=== PATIENT | male | born 1955 | race African-American/Black ===

== ENCOUNTER 2016-09-05 12:05 | Day surgery (SDC) | payer BC ==
--- NOTE | ~2016-09-05 | EGD ---
EGD REPORT [facility] [address] [place] [address] NAME: TWAN WINTERS : 57 STATUS : REG [facility]#: [id number] AGE: 61 ADM/REG DATE : 09/05/16 MR#: [id number] REPORT SERV DATE: 09/05/16 DICTATED BY: KOLE LINDA DATE: 09/05/16 REPORT STATUS : Draft [facility]: [facility] DATE: 09/05/16 End[facility] Center Patient Name: Twan Winters Date of : 1955 Attending MD: KOLE LINDA MD Procedure Date No Time: 09/05/2016 Procedure: Upper GI endoscopy Indications: Epigastric abdominal pain, Dysphagia, Hematemesis Referring MD: MARIZOL GONZALEZ Medicines: See the Anesthesia note for documentation of the administered medications Complications: Oxygen sats dropped, ambu assisted respirations Procedure: After obtaining informed consent, the endoscope was passed under direct vision. Throughout the procedure, the patient's blood pressure, pulse, and oxygen saturations were monitored continuously. The GIF [id number] was introduced through the mouth, and advanced to the second part of duodenum. The upper GI endoscopy was accomplished without difficulty. The patient tolerated the procedure well. Findings: The examined duodenum was normal. The entire examined stomach was normal. The cardia and gastric fundus were normal on retroflexion. A 7 cm hiatus hernia was present. A mild Schatzki ring (acquired) was found at the gastroesophageal junction. dilated with scope Moderately severe gina esophagitis Impression: - Normal examined duodenum. - Normal stomach. - Hiatus hernia. - Mild Schatzki ring. - Moderately severe gina esophagitis Recommendation: - Patient has a contact number available for emergencies. The signs and symptoms of potential delayed complications were discussed with the patient. Return to normal activities tomorrow. Written discharge instructions were provided to the patient. - Soft diet. - Continue present medications. - Call office to schedule EGD with dilation for 3-4 weeks Rx for Diflucan 100mg two day one and then one every day EGD REPORT [address] [place]. [address] NAME: TWAN WINTERS : [birth year] STATUS : REG [facility]#: [id number] AGE: 61 ADM/REG DATE : 09/05/16 MR#: [id number] REPORT SERV DATE: 09/05/16 DICTATED BY: KOLE LINDA DATE: 09/05/16 REPORT STATUS : Draft TRANSCRIBED BY: [employer] DATE: 09/05/16 for 9 days Procedure Code(s): --- Professional --- 12649, Esophagogastroduodenoscopy, flexible, transoral; diagnostic, including collection of specimen(s) by brushing or washing, when performed (separate procedure) Diagnosis Code(s): --- Professional --- K44.9, Diaphragmatic hernia without obstruction or gangrene K22.2, Esophageal obstruction R10.13, Epigastric pain R13.10, Dysphagia, unspecified K92.0, Hematemesis CPT copyright 2013 [employer]. All rights reserved. The codes documented in this report are preliminary and upon category planner review may be revised to meet current compliance requirements. Kole Linda MD KOLE LINDA MD 09/05/2016 1:56 PM This report has been signed electronically. Number of Addenda: 0 Note Initiated On: 09/05/2016 1:40 PM Scope Withdrawal Time 0 hours 0 minutes 0 seconds [address] [place] [address]
[~2016-09-05 12:05] MED LIST: B12; DIOVAN HCT320 MG/25 PO; FLONASE NAS; FLUTICASONE NASAL NAS; HYDROCOD APAP PO; IMU PO; KLOR-CON M2020 MEQ PO; KLOR-CON/EF25 MEQ PO; LORTAB 5 PO; LORTAB10 PO; METHOC750B PO; MOBIC15 MG PO; MULTIVITAMI1 PO; NEUR300 PO; NEUR600 PO; PRILO PO; VOLT75 PO; VOLTXR100 PO; [UNRECOGNIZED DRUG - OTHER] PO
[2017-02-19] MEDS ORDERED: KDUR20 PO (16:49)
[2017-02-19] MEDS ORDERED: DIOVAN HCT320 MG/25 PO (16:49)
[2017-02-19] MEDS ORDERED: EZFE 200200 MG PO (16:50)
[2017-02-19] MEDS ORDERED: NEUR300 PO (16:50)
[2017-02-19] MEDS ORDERED: INDO50 PO (16:51)
[2017-02-19] MEDS ORDERED: PRILOSEC40 MG PO (16:52)
[2017-02-19] MEDS ORDERED: GREEN TEA PO (16:53)
[2017-02-19] MEDS ORDERED: NORCO1 TAB PO (16:53)
[2017-02-19] MEDS ORDERED: MULTIPLE VIT PO (16:54)
== END 2016-09-05 23:59 | disposition home or self-care (01) ==
LOC: DMU 12:05
PROVIDERS: Internal Medicine Gastroenterology
PROC: 0DJ08ZZ Inspection of Upper Intestinal Tract, Via Natural or Artificial Opening Endoscopic (ICD-10-PCS; principal; 2016-09-05 14:00)
DX: K22.2 Esophageal obstruction (principal); B37.81 Candidal esophagitis; K44.9 Diaphragmatic hernia without obstruction or gangrene; R10.13 Epigastric pain; R13.10 Dysphagia, unspecified; K92.0 Hematemesis; I10 Essential (primary) hypertension; G47.33 Obstructive sleep apnea (adult) (pediatric); M33.20 Polymyositis, organ involvement unspecified; K21.9 Gastro-esophageal reflux disease without esophagitis; M06.9 Rheumatoid arthritis, unspecified; Z79.899 Other long term (current) drug therapy; Z79.51 Long term (current) use of inhaled steroids; Z79.891 Long term (current) use of opiate analgesic; Z88.2 Allergy status to sulfonamides
CPT/HCPCS: 82962; J2930

== ENCOUNTER 2016-10-18 06:20 | Day surgery (SDC) | payer BC ==
[2016-10-14 10:18] LABS: HEMATOCRIT 36.7 % (40.0-51.0); HEMOGLOBIN 13.1 g/dL (13.6-17.8)
[2016-10-14 10:30] LABS: A/G RATIO 1.2 (0.7-1.9); ALBUMIN 3.9 G/DL (3.5-5.0); ALKALINE PHOSPHATASE 68 U/L (45-117); BUN (BLOOD UREA NITROGEN) 10 MG/DL (6-23); CALCIUM, SERUM 8.6 MG/DL (8.5-10.4); CHLORIDE, SERUM 107 MMOL/L (96-112); CO2 (CARBON DIOXIDE) 30 MMOL/L (24-34); CREATININE 0.59 MG/DL (0.70-1.30); GFR AFRICAN AMERICAN 128 ML/MIN (>=60); GFR NON AFRICAN AMERICAN 110 ML/MIN (>=60); GLOBULIN 3.2 G/DL (2.5-4.1); GLUCOSE, SERUM 90 MG/DL (60-99); POTASSIUM, SERUM 3.5 MMOL/L (3.5-5.3); SGOT(AST) 27 U/L (5-40); SGPT(ALT) 39 U/L (5-65); SODIUM, SERUM 142 MMOL/L (135-148); TOTAL BILIRUBIN 1.1 MG/DL (0-1.2); TOTAL PROTEIN 7.1 G/DL (6.0-8.5)
--- NOTE | ~2016-10-18 | OP ---
Record Of Operation [facility] [address] [place]. [address] NAME: TWAN JAMIL : 57 STATUS : [facility]#: [id number] AGE: 61 ADM/REG DATE : 10/18/16 MR#: [id number] REPORT SERV DATE: 10/18/16 DICTATED BY: SAWYER MONTES DE OCA DATE: 10/18/16 REPORT STATUS : Draft TRANSCRIBED BY: MOD[employer] DATE: 10/18/16 DATE OF PROCEDURE: 10/18/2016 PREOPERATIVE DIAGNOSIS: Bilateral inguinal hernia. POSTOPERATIVE DIAGNOSIS: Bilateral inguinal hernia. PROCEDURE: Laparoscopic reduction and mesh patch repair of bilateral inguinal hernia. DESCRIPTION OF OPERATIVE PROCEDURE: The patient was brought to the operating suite, placed in supine position, underwent satisfactory general endotracheal anesthesia without incident. The skin of the abdomen was scrubbed, prepped, and draped in usual sterile fashion. 0.5% Marcaine with epinephrine was utilized as supplemental local anesthesia. Initially, an infraumbilical incision was performed dissecting through the skin and subcutaneous tissue to the umbilical fascia. Inferolateral retraction to the left exposed the medial aspect of the left anterior rectus sheath. This was incised longitudinally and the medial aspect of the left rectus muscle was identified and retracted laterally exposing the left posterior rectus sheath. A preperitoneal dissection balloon was inserted posterior to the left rectus sheath to the level of pubic tubercle. It was insufflated under direct camera visualization creating a preperitoneal dissection plane bilaterally. This balloon was removed and replaced with a structural balloon and CO2 was insufflated into the preperitoneal space for pressures of 15 mmHg throughout the case. Two additional 5 mm trocars were placed in the infraumbilical midline. Completion of preperitoneal dissection was performed bilaterally. On the left, there was a direct defect consisted of incarcerated fat medial to the inferior epigastric vessels over the pubic tubercle. There was no indirect defect. On the right, the patient had no direct defect, but he had a large protrusion of preperitoneal fat through the internal ring that took many moments of tedious dissection to remove from the ring and then free up between Weck polymer clips to where it could be retracted away from the internal ring. Two separately placed pieces of Bard 3DMax polypropylene mesh, size large, oriented left and right were utilized for the repair. The pieces of mesh were placed in local anesthesia, rolled up and then placed in the preperitoneal space. They were unrolled over the inguinal canals bilaterally covering Hesselbach's triangle and the inferior epigastric vessels. The cord structures were allowed to egress below the lower edge of the mesh. Multiple firings of the SorbaFix helical tacker were utilized to plicate the mesh in position and then hemostasis was assured. CO2 was allowed to egress from the preperitoneal space. Trocar was removed as well as a structural balloon. The posterior rectus sheath and peritoneum were opened allowing CO2 to egress from the Record Of Operation [place] [id number] [facility] [place]. [address] NAME: TWAN JAMIL : 57 STATUS : [facility]#: [id number] AGE: 61 ADM/REG DATE : 10/18/16 MR#: [id number] REPORT SERV DATE: 10/18/16 DICTATED BY: SAWYER MONTES DE OCA DATE: 10/18/16 REPORT STATUS : Draft TRANSCRIBED BY: ASMITA DATE: 10/18/16 peritoneal cavity, and then the posterior rectus sheath as well as the anterior rectus sheath were both closed with [id number] sutures of 0 Vicryl. Subcutaneous tissue closed at all sites with interrupted 4-0 Vicryl, running subcuticular stitch 4-0 Vicryl for the skin, and Dermabond skin adhesive placed. The patient tolerated the procedure well and was returned to PACU in stable condition. At the termination of the procedure, sponge, needle, lap, and instrument counts were correct x3. ESTIMATED BLOOD LOSS: 15-20 mL. BEN/ASMITA Sawyer Montes De Oca M.D. / [id number] CC: Des Costello M.D.
[2017-02-19] MEDS ORDERED: KDUR20 PO (16:49)
[2017-02-19] MEDS ORDERED: DIOVAN HCT320 MG/25 PO (16:49)
[2017-02-19] MEDS ORDERED: EZFE 200200 MG PO (16:50)
[2017-02-19] MEDS ORDERED: NEUR300 PO (16:50)
[2017-02-19] MEDS ORDERED: INDO50 PO (16:51)
[2017-02-19] MEDS ORDERED: PRILOSEC40 MG PO (16:52)
[2017-02-19] MEDS ORDERED: GREEN TEA PO (16:53)
[2017-02-19] MEDS ORDERED: NORCO1 TAB PO (16:53)
[2017-02-19] MEDS ORDERED: MULTIPLE VIT PO (16:54)
== END 2016-10-18 13:02 | disposition home or self-care (01) ==
LOC: SDC 06:20
PROVIDERS: Specialist
PROC: 0YUA4JZ Supplement Bilateral Inguinal Region with Synthetic Substitute, Percutaneous Endoscopic Approach (ICD-10-PCS; principal; 2016-10-18 07:45)
DX: K40.20 Bilateral inguinal hernia, without obstruction or gangrene, not specified as recurrent (principal); M06.9 Rheumatoid arthritis, unspecified; G47.33 Obstructive sleep apnea (adult) (pediatric); I10 Essential (primary) hypertension; R73.03 Prediabetes; M33.20 Polymyositis, organ involvement unspecified; G47.30 Sleep apnea, unspecified; Z88.2 Allergy status to sulfonamides; Z96.642 Presence of left artificial hip joint; Z98.41 Cataract extraction status, right eye; Z98.42 Cataract extraction status, left eye; Z96.1 Presence of intraocular lens; Z98.890 Other specified postprocedural states; Z90.49 Acquired absence of other specified parts of digestive tract; Z79.899 Other long term (current) drug therapy; Z79.891 Long term (current) use of opiate analgesic
CPT/HCPCS: 80053; 82962; 85014; 85018; 93005; C1726; C1727; C1781; J0690; J1170; J1885; J2250; J2370; J2405; J2710; J3010